=== PATIENT | female | born 1970 | race Caucasian/White ===

== ENCOUNTER 2024-10-06 07:48 | Outpatient (CLI) | payer BC, SELFPAY ==
--- NOTE | ~2024-10-06 | US_ITS ---
EXAM: US abdomen limited - 10/06/2024 7:55 CDT History: 53 years old Female with R74.01 - Elevation of levels of liver transaminase levels TECHNIQUE: Ultrasound of the abdomen was performed. COMPARISON: None available. FINDINGS: LIVER: Increased echogenicity compatible with moderate hepatic steatosis. The liver is normal in size . Multiple simple hepatic cysts are seen, the largest of which measures 2.4 x 2.6 x 2.7 cm. The small er one negatives 1 cm. INTRAHEPATIC BILE DUCTS: Nondilated. COMMON BILE DUCT: 3 mm. Normal caliber. GALLBLADDER: Cholelithiasis without evidence of gallbladder wall thickening or pericholecystic fluid. The gallbladder was not tender to transducer palpation. PANCREAS: Visualized portions are normal. ASCITES: None. OTHER: Patient IVC IMPRESSION: Hepatic steatosis. Cholelithiasis. Two hepatic cysts. Reviewed, dictated and finalized at location A.
== END 2024-10-06 07:49 | disposition home or self-care (01) ==
LOC: MICIMG 07:48
PROVIDERS: PCP Internal Medicine; Visit Provider Internal Medicine
DX: K76.0 Fatty (change of) liver, not elsewhere classified (principal); K80.20 Calculus of gallbladder without cholecystitis without obstruction; K76.89 Other specified diseases of liver; R74.01 Elevation of levels of liver transaminase levels
CPT/HCPCS: 76705

== ENCOUNTER 2025-01-21 13:33 | Outpatient (CLI) | payer BC, SELFPAY ==
--- NOTE | ~2025-01-21 | MR_ITS ---
EXAMINATION: MR cervical spine wo con DATE: 01/21/2025 14:56 INDICATION: Radiculopathy, cervical region. TECHNIQUE: Magnetic resonance imaging (MRI) of the cervical spine was performed without intravenous contrast. COMPARISON: None FINDINGS: Alignment is normal. Vertebral body heights are normal. Intervertebral disc heights are normal. The spinal cord signal intensity is normal. The following disc levels are specifically discussed: C2-C3: There is a central protrusion. There is no uncovertebral joint osteoarthritis. There is no facet joint osteoarthritis. There is no neural foraminal stenosis. There is no central canal stenosis. C3-C4: There is a central protrusion. There is no uncovertebral joint osteoarthritis. There is no facet joint osteoarthritis. There is no neural foraminal stenosis. There is no central canal stenosis. C4-C5: There is a central extrusion. There is mild bilateral uncovertebral joint osteoarthritis. There is mild bilateral facet joint osteoarthritis. There is no neural foraminal stenosis. There is mild central canal stenosis. C5-C6: There is a central extrusion. There is mild bilateral uncovertebral joint osteoarthritis. There is mild bilateral facet joint osteoarthritis. There is mild bilateral neural foraminal stenosis. There is mild central canal stenosis. C6-C7: There is a central protrusion. There is no uncovertebral joint osteoarthritis. There is no facet joint osteoarthritis. There is no neural foraminal stenosis. There is no central canal stenosis. C7-T1: There is a central protrusion. There is no uncovertebral joint osteoarthritis. There is mild bilateral facet joint osteoarthritis. There is no neural foraminal stenosis. There is no central canal stenosis. IMPRESSION: 1. Mild cervical spondylosis. Reviewed, dictated and finalized at location E.
== END 2025-01-21 13:34 | disposition home or self-care (01) ==
PROVIDERS: PCP Internal Medicine; Visit Provider Internal Medicine
DX: M47.812 Spondylosis without myelopathy or radiculopathy, cervical region (principal)
CPT/HCPCS: 72141